=== PATIENT | male | born 2000 ===

== ENCOUNTER 2021-10-17 18:37 | Outpatient (CLI) | payer SELFPAY ==
[2021-10-18 02:08] LABS: GC DNA Amplified* NOT DETECTED (No Detected)
[2021-10-18 12:44] LABS: Chlamydia DNA Amplified* DETECTED (No Detected)
== END 2021-10-17 18:38 | disposition home or self-care (01) ==
LOC: LKVREF 18:37
PROVIDERS: Visit Provider Emergency Medicine
DX: R36.9 Urethral discharge, unspecified (principal)
CPT/HCPCS: 87491; 87591

== ENCOUNTER 2021-10-21 08:14 | Outpatient (CLI) | payer SELFPAY ==
[2021-10-21 12:53] LABS: Hepatitis B Surface Antigen* Negative (Negative)
[2021-10-21 13:02] LABS: HIV 1/2/P24 Combo Screen* Negative (Negative)
[2021-10-21 13:11] LABS: Hepatitis C Virus Antibody* Negative (Negative)
[2021-10-23 16:01] LABS: Rapid Plasma Reagin (RPR) Non Reactive (Non Reactive)
== END 2021-10-21 08:15 | disposition home or self-care (01) ==
PROVIDERS: Visit Provider Family Medicine
DX: A74.9 Chlamydial infection, unspecified (principal); Z11.3 Encounter for screening for infections with a predominantly sexual mode of transmission
CPT/HCPCS: 86592; 86703; 86803; 87340; 87529

== ENCOUNTER 2022-05-15 15:25 | Outpatient (CLI) | payer OTHER, SELFPAY ==
[2022-05-15 23:13] LABS: HIV 1/2/P24 Combo Screen* Negative (Negative)
[2022-05-16 00:21] LABS: Hepatitis C Virus Antibody* Negative (Negative)
[2022-05-16 00:29] LABS: Chlamydia DNA Amplified* NOT DETECTED (No Detected); GC DNA Amplified* NOT DETECTED (No Detected)
[2022-05-17 17:26] LABS: Rapid Plasma Reagin (RPR) Non Reactive (Non Reactive)
[2022-05-20 09:33] LABS: HSV 1 Subtype by PCR Not Detected; HSV 2 Subtype by PCR Not Detected; Herpes Simplex Subtype Source Serum
== END 2022-05-15 15:26 | disposition home or self-care (01) ==
PROVIDERS: Visit Provider Physician Assistant Medical
DX: Z11.3 Encounter for screening for infections with a predominantly sexual mode of transmission (principal)
CPT/HCPCS: 86592; 86703; 86803; 87252; 87491; 87529; 87591

== ENCOUNTER 2023-02-28 20:17 | Emergency (ER) | payer OTHER, SELFPAY ==
[2023-02-28] VITALS (8 sets, daily range): BP systolic 118–121; BP diastolic 62–78; PULSE 99–125; RESP 20–24; TEMP 37.5–38.7; O2SAT 97–98; BMI 22.0
[2023-02-28 21:12] LABS: PCR FLU A Negative PCR FLU A (Negative); PCR FLU B Negative PCR FLU B (Negative); PCR RSV Negative PCR RSV (Negative)
[2023-02-28 21:24] LABS: SARS PCR* Negative SARS-CoV-2 (Negative)
--- NOTE | 2023-02-28 21:48 | CRLHL7_ITS ---
For Patients: As a result of the Cures Act, medical imaging exams and procedure reports are released immediately into your electronic medical record. You may view this report before your referring provider. If you have questions, please contact your health care provider. Indication: Fever and cough Technique: Chest 2 views Comparison: None Findings/Impression: Normal cardiomediastinal silhouette. There is some ill-defined opacities in both lower lobes concerning for atelectasis or infection. No pneumothorax or effusion. No acute osseous abnormality. Dictated by Yolanda You MD @ 02/28/2023 10:35:33 PM (Electronically Signed)
--- NOTE | 2023-02-28 21:49 | ED_ITS ---
HPI - General Adult General Chief complaint: Fever Stated complaint: shortness of breath Time Seen by Provider: 02/28/23 21:23 History of Present Illness HPI narrative: This 22-year-old male comes in with his mother and reports rather sudden onset of fever, body aches, cough, sore throat that occurred earlier today. Prior to this he has been feeling normal. He arrives with tachycardia and temperature of 101.7?. Related Data Home Medications Medication Instructions Recorded Confirmed No Known Home Medications 05/15/22 10/03/22 Allergies Allergy/AdvReac Type Severity Reaction Status Date / Time No Known Allergies Allergy Verified 10/03/22 12:16 Review of Systems Status of ROS: Reports: 10 or more systems reviewed and unremarkable except as noted in History and below Narrative: Constitutional: No weight gain or loss. Fever and body aches. Eyes: No discharge. No vision changes. HENT: No congestion, no sore throat, no ear pain. Cardiovascular: No chest pain, no palpitations. Respiratory: No shortness of breath, no wheezes. He reports a cough. Gastrointestinal: No abdominal pain, no vomiting, no diarrhea. Genitourinary: No dysuria, no hematuria. Musculoskeletal: Normal range of motion. Skin: No rashes, no pruritis. Neurological: No dizziness, weakness, sensory change, speech change. Endo/Heme/Allergies: No bruising or bleeding. No polydipsia. Pysch: no suicidality, no anxiety, no insomnia. All other systems reviewed and are negative. [facility] Medical History (Updated 02/28/23 @ 22:56 by Claude Romo MD) Passive suicidal ideations ?R45.851 - Suicidal ideations (ICD-10) Severe anxiety ?F41.9 - Anxiety disorder, unspecified (ICD-10) Mood disorder ?F39 - Unspecified mood [affective] disorder (ICD-10) Bilateral patent pressure equalization tubes (05/29/08) ?Z96.22 - Myringotomy tube(s) status (ICD-10) Chlamydia ?A74.9 - Chlamydial infection, unspecified (ICD-10) Social History Smoking Status: Never smoker Second hand tobacco smoke exposure: No How often do you have a drink containing alcohol: never AUDIT-C Alcohol total score: 0 Non-prescribed substance use: denies use Little interest or pleasure in doing things: nearly every day Feeling down, depressed, or hopeless: nearly every day Exam Narrative: Exam Narrative: Constitutional: Well-developed, well-nourished, no acute distress. HEENT: Normocephalic, atraumatic. Neck: Normal range of motion. Nontender. Supple. Heart: Regular. No murmurs. Normal rate. Intact distal pulses. Lungs: Clear to auscultation. No chest discomfort. No wheezes, rhonchi, or rales. Abdomen: Normal bowel sounds. Nontender. No rebound tenderness. Genitalia: Deferred. Back: No midline tenderness. Normal range of motion. Extremities: Normal range of motion. No injury. Skin: Intact. No rash. Warm. No erythema or pallor. Neurologic: No altered sensation. No weakness. Alert and oriented. Psychiatric: No suicidality. No anxiety or depression. No insomnia. Nursing notes and vitals signs are reviewed. Const: Vital Signs, click to edit/add: Vital Signs - 24 hr 02/28/23 20:23 02/28/23 20:24 02/28/23 21:30 Temperature 101.3 F H 101.7 F H Pulse Rate [Pulse Oximeter] 125 H Pulse Rate [Right Pulse Oximeter] 113 H Respiratory Rate 20 24 Blood Pressure [Le ft Arm] 121/70 Blood Pressure [Ri ght Upper Arm] 118/62 Pulse Oximetry 98 97 98 Oxygen Delivery Me thod Room Air Room Air 02/28/23 21:52 02/28/23 22:00 Temperature 101.7 F H 101.3 F H Pulse Rate [Pulse Oximeter] 113 H Pulse Rate [Right Pulse Oximeter] Respiratory Rate 24 Blood Pressure [Le ft Arm] Blood Pressure [Ri ght Upper Arm] 121/70 Pulse Oximetry 97 Oxygen Delivery Me thod Room Air Course Vital Signs Vital signs: Initial Vital Signs Temperature 101.3 F H 02/28/23 20:23 Temperature Source Temporal Artery Scan 02/28/23 20:23 Pulse Rate 113 H 02/28/23 20:23 Respiratory Rate 20 02/28/23 20:23 Respiratory Effort Normal, Spontaneous, Non-Labored 02/28/23 20:23 Respiratory Depth Normal 02/28/23 20:23 Respiratory Pattern Normal 02/28/23 20:23 Blood Pressure 121/70 02/28/23 20:23 Blood Pressure Mean 87 02/28/23 20:23 Blood Pressure Position Supine 02/28/23 20:23 Pulse Oximetry 98 02/28/23 20:23 Oxygen Delivery Method Room Air 02/28/23 20:23 Sepsis Recent Fever Within 48 Hours Yes 02/28/23 20:23 Sepsis New/Unexplained Change in Mental Status No 02/28/23 20:23 Sepsis Action Taken by Nursing No Action Required 02/28/23 20:23 Vital Signs Temperature 101.3 F H 02/28/23 20:23 Pulse Rate 113 H 02/28/23 20:23 Respiratory Rate 20 02/28/23 20:23 Blood Pressure 121/70 02/28/23 20:23 Pulse Oximetry 98 02/28/23 20:23 Oxygen Delivery Method Room Air 02/28/23 20:23 Temperature 101.3 F H 02/28/23 22:00 Pulse Rate 113 H 02/28/23 22:00 Respiratory Rate 24 02/28/23 22:00 Blood Pressure 121/70 02/28/23 22:00 Pulse Oximetry 97 02/28/23 22:00 Oxygen Delivery Method Room Air 02/28/23 22:00 Medications Administered Medications: Generic Name Dose Route Start Last Admin Trade Name Freq PRN Reason Stop Dose Admin Sodium Chloride 1,000 mls @ 1,000 mls/hr 02/28/23 22:00 02/28/23 21:52 0.9 % Sodium Chloride 1000 Ml IV 02/28/23 22:59 1,000 mls/hr .Q1H ZENIA Administration Sodium Chloride 1,000 mls @ 1,000 mls/hr 02/28/23 22:00 02/28/23 21:53 0.9 % Sodium Chloride 1000 Ml IV 02/28/23 22:59 1,000 mls/hr .Q1H ZENIA Administration Discontinued Medications Generic Name Dose Route Start Last Admin Trade Name Freq PRN Reason Stop Dose Admin Acetaminophen 1,000 mg 02/28/23 21:47 02/28/23 21:52 Acetaminophen 500 Mg Tablet PO 02/28/23 21:48 1,000 mg ONCE ONE Administration Medical Decision Making MDM Narrative Medical decision making narrative: This patient comes in reporting rather sudden onset of fever, body aches, cough. An IV was established where he did receive a couple L of normal saline. He arrives with fever and had some ibuprofen prior to arrival. He also received Tylenol 1000 mg here. This helped him feel better. Lab results returned negative for COVID, influenza, RSV, and strep. His white count is elevated a bit at 13.7. His lactate returns in normal range. A chest x-ray is obtained and this does show some subtle finding at the bases that may indicate infiltrate. Seeing that all the viral testing was negative I did decide to treat him with an antibiotic. He received an [employer] prescription for doxycycline. Lab Data Labs: Lab Results 02/28/23 02/28/23 02/28/23 Range/Units 20:20 21:40 21:48 WBC 13.79 H (4.50-11.00) K/uL RBC 5.82 (4.30-5.90) m/uL Hgb 15.3 (13.5-17.5) gm/dL Hct 46.1 (37.0-53.0) % MCV 79 L (80-100) fL MCH 26 (26-34) pg MCHC 33 (32-36) gm/dL RDW Coeff of Nino 12.4 (11.5-15.5) % Plt Count 245 (140-440) K/uL Neut % (Auto) 90.5 H (42.0-72.0) % Lymph % (Auto) 6.7 L (20-44) % [place] % (Auto) 2.5 (0.0-11.0) % Eos % (Auto) 0.1 (0.0-7.0) % Baso % (Auto) 0.1 (0.0-3.0) % Neut # (Auto) 12.50 H (1.7-7.0) K/uL Lymph # (Auto) 0.90 (0.90-2.90) K/uL [place] # (Auto) 0.30 (0.00-0.90) K/UL Eos # (Auto) 0.00 (0.00-0.50) K/uL Baso # (Auto) 0.00 (0.00-0.30) K/uL Abs Immat Gran (auto) 0.00 (0.00-0.30) K/uL Imm/Tot Granulo (auto) 0.1 % Sodium 137 (135-149) mmol/L Potassium 3.6 (3.6-5.1) mmol/L Chloride 104 (96-114) mmol/L Carbon Dioxide 23 (20-32) mmol/L Anion Gap 10 (7-15) mEq/L BUN 19 (5-24) mg/dL Creatinine 1.0 (0.5-1.5) mg/dL Estimated Creat Clear 113.74 Estimated GFR 109 ml/min Glucose 114 (60-115) mg/dL Lactate 1.7 (0.5-1.9) mmol/L Calcium 9.5 (8.4-10.6) mg/dL SARS-CoV-2 (PCR) Negative SARS-CoV-2 (Negative) Influenza Type A (PCR) Negative PCR FLU A (Negative) Influenza Type B (PCR) Negative PCR FLU B (Negative) RSV (PCR) Negative PCR RSV (Negative) Group A Strep DNA NOT DETECTED (Not Detectd) Imaging Data Chest x-ray: Radiologist's impression: Normal cardiomediastinal silhouette. There is some ill-defined opacities in both lower lobes concerning for atelectasis or infection. No pneumothorax or effusion. No acute osseous abnormality. Discharge Plan Discharge Clinical Impression: Acute respiratory infection Patient Disposition: Home w/ Parent or Adult Condition: Unchanged Additional Instructions: Take medication as prescribed. Use [id number] medicines also as needed and directed. Follow up with MD return if worsening. Prescriptions: No Action No Known Home Medications Follow Up/Referrals: Provider,Not a Local [Primary Care Provider] - Stand Alone Forms: [employer] Info Instructions
[2023-02-28] MEDS: ACETAMINOPHEN 500 MG TABLET 1000 MG PO (21:52)
[2023-02-28] MEDS: 0.9 % SODIUM CHLORIDE 1000 ml 1,000 ML IV ×2 (21:52→21:53)
[2023-02-28 22:00] LABS: Hematocrit 46.1 % (37.0-53.0); Hemoglobin* 15.3 gm/dL (13.5-17.5); Mean Corpuscular HGB Conc 33 gm/dL (32-36); Mean Corpuscular Hemoglobin 26 pg (26-34); Mean Corpuscular Volume 79 fL (80-100); Neutrophils Percent Auto 90.5 % (42.0-72.0); Platelet Count* 245 K/uL (140-440); RDW Coefficient of Variation % 12.4 % (11.5-15.5); Red Blood Count 5.82 m/uL (4.30-5.90); White Blood Count* 13.79 K/uL (4.50-11.00)
[2023-02-28 22:01] LABS: Basophils Percent Auto 0.1 % (0.0-3.0); Eosinophils Percent Auto 0.1 % (0.0-7.0); Immature Granulocytes Pct Auto 0.1 %; Lymphocytes Percent Auto 6.7 % (20-44); Monocytes Percent Auto 2.5 % (0.0-11.0)
[2023-02-28 22:13] LABS: Slide Review Reflex No
[2023-02-28 22:16] LABS: Chloride* 104 mmol/L (96-114); Potassium* 3.6 mmol/L (3.6-5.1); Sodium* 137 mmol/L (135-149)
[2023-02-28 22:19] LABS: Anion Gap 10 mEq/L (7-15); Blood Urea Nitrogen* 19 mg/dL (5-24); Carbon Dioxide* 23 mmol/L (20-32); Est. Creatinine Clearance* 113.74; Estimated Glomerular Filt Rate 109 ml/min
[2023-02-28 22:20] LABS: Calcium* 9.5 mg/dL (8.4-10.6); Glucose* 114 mg/dL (60-115)
[2023-02-28 22:30] LABS: Lactate* 1.7 mmol/L (0.5-1.9)
[2023-02-28 22:44] LABS: Strep A DNA Probe* NOT DETECTED (Not Detectd)
== END 2023-02-28 23:09 | disposition home or self-care (01) ==
PROVIDERS: Emergency Provider Emergency Medicine Emergency Medical Services
DX: J06.9 Acute upper respiratory infection, unspecified (principal)
CPT/HCPCS: 36415; 71046; 80048; 83605; 85025; 87631; 87651; 94761; 99283; 99284; A9270; J7030

== ENCOUNTER 2024-10-20 18:22 | Emergency (ER) | payer OTHER, SELFPAY ==
--- OUTSIDE RECORDS SUMMARY | 2024-10-16 10:20 | XMS_ITS | Encounter Summary ---
Author Organization [facility] Address [address], [place] [address] Care Team Providers Care Economic Specialist Name Role Phone Needs Pcp, Assignment Primary Care Provider [phone]- [phone] Reason for Referral * Consult/Transfer Care (Routine) - New Request Specialty Diagnoses / Procedures Referred By Contac t Referred To Contact Diagnoses Major depressive disorder with current active episode, unspecified depression episode severity, unspecified whether recurrent (HRC) Brett Abdullahi MD [address] [place] [address] Phone: tel: fax: Referral ID Status Reason Start Date Expiration Date V isits Requested Visits Authorized [id number] New Request 10/16/2024 01/15/2026 1 1 Scheduling Instructions Your provider has recommended an appointment with [facility]. You can quickly make your appointment online at [email or web address]. You can also call [phone] for help scheduling your appointment. We suggest you call your health insurance company about your coverage and benefits for this appointment. Question Answer Appointment Urgency? Non-Urgent Reason for visit? to establish care and depression follow up-within 2-3 weeks Reason for Visit * Reason Comments ANXIETY Encounter Details Date Type Department Care Team (Late st Contact Info) Description 10/16/2024 10:20 AM CDT Office Visit [facility] [address] [place] [id number] Brett Abdullahi MD [address] [place] [address] Major depressive disorder with current active episode, unspecified depression episode severity, unspecified whether recurrent (HRC) Social History Tobacco Use Types Packs/Day Years Used Date Smoking Tobacco: Never Tobacco Cessation:Counseling Given: Not Answered Sex and Gender Information Value Date Recorded Sex Assigned at Not on file 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 Gender Identity Not on file Sexual Orientation Not on file documented as of this encounter Last Filed Vital Signs Vital Sign Reading Time Taken Comments Blood Pressure 135/80 10/16/2024 10:17 AM CDT Pulse 80 10/16/2024 10:17 AM CDT Temperature 36.8 C (98.3 F) 10/16/2024 10:17 AM CDT Respiratory Rate 16 10/16/2024 10:17 AM CDT Oxygen Saturation 100% 10/16/2024 10:17 AM CDT Inhaled Oxygen Concentration - - Weight - - Height - - Body Mass Index - - documented in this encounter Patient Instructions * Patient Instructions* Brett Abdullahi MD - 10/16/2024 10:20 AM CDT You are referred to establish care with a primary care provider. Take your medication as directed at night. documented in this encounter Progress Notes * Brett Abdullahi MD - 10/16/2024 10:20 AM CDT CHIEF COMPLAINT Chief Complaint Patient presents with ANXIETY HISTORY OF PRESENT ILLNESS 24 y.o. year old male presents to the Urgent Care today for evaluation of anxiety and depression. Claims that over the last couple of weeks he has been having worsening feeling of the himself. Further questioning reveals that he has been having depressive thought ever since he was in [employer] but everybody came on telling to get better on his own. He thinks that he may have seen a counselor 1 time but not sure of the results. Has never been started on any medication. 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 He denies having any suicide ideation even though he has a fleeting thoughts. The last major event that really put him down is hehas a relationship with a young girl who basically told him that he is not good for her and therefore the relationship is in jeopardy. Mom states that he hours have negative thoughts about everything he almost thought about what he can do any the thing differently if something did not not go well. He dealt on that. Reviewed Nursing Notes: Charlette Ovalle RN 10/16/24 1018 Signed Per pt has been feeling anxious for the past couple days. Hx of anxiety, but is not on any medications for this. 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 REVIEW OF SYSTEMS 10 review of systems were reviewed and normal except what were noted under HPI. PRIOR HISTORY Medications: No outpatient medications prior to visit. No facility-administered medications prior to visit. Reviewed via [employer] Chart Review/CareEverywhere: Allergies Past Medical HistoryThere is no problem list on file for this patient. Past Surgical History Social History Social History Tobacco Use Smoking status: Never Smokeless tobacco: Not on file Vaping Use Vaping status: Never Used Substance Use Topics Alcohol use: Not on file Drug use: Not on file PHYSICAL EXAM Vitals Reviewed: BP 135/80 (BP Location: Left Arm, BP Cuff Size: Regular - Long) Pulse 80 Temp 36.8 ??C (98.3 ??F) (Oral) Resp 16 SpO2 100% GENERAL: Healthy-appearing patient. Alert oriented x3. In no acute respiratory distress. He has a flat affect and started crying when discussed about all his dilemma. HEAD: Normocephalic atraumatic. EYE: Nonicteric sclera. Conjunctiva without injection. ENT: Neck supple. CV: Regular rate and rhythm without murmur. Distal pulses are equally palpable and appear to be normal. PULM: Normal auscultation of both lungs. No wheezing, crackles and rales appreciated. MSK: Both upper and lower extremities appear to be normal. SKIN: No rash or other lesions appreciated. NEURO: Alert and oriented x3. Able to communicate in full sentences. LABS - IMAGING - MEDICATIONS LABS/EKG: No results found for any visits on 10/16/24. IMAGING: No results found. INTERVENTIONS: MEDICAL DECISION MAKING Patient seen and assessed. Presented to Urgent Care for for symptoms consistent with major depression or possibly even dysthymia. After long discussion was done we will start him on sertraline to be taken at night daily and refer him to establish care with a primary care provider and from there a referral to counseling is recommended. Long discussion about what he can do to improve his outlook on life done in detail. If despite above and symptoms worsen, see your provider or come back for re- evaluation here or the ER. Patient was understanding of above assessment and plan and left the clinic in stable condition. ASSESSMENT & PLAN DIAGNOSIS: ICD-10-CM 1. Major depressive disorder with current active episode, unspecified depression episode severity, unspecified whether recurrent (HRC) F32.9 FAMILY MEDICINE CONSULT ADULT/PEDS (AMB) Orders Placed This Encounter Medications sertraline (ZOLOFT) 50 MG tablet Sig: Take 1 Tablet (50 mg) by mouth daily for 30 days. Dispense: 30 Tablet Refill: 0 DISPOSITION: Discharge Home Brett Abdullahi M.D. [facility] documented in this encounter Nursing Notes * Charlette Ovalle RN - 10/16/2024 10:20 AM CDT Per pt has been feeling anxious for the past couple days. Hx of anxiety, but is not on any medications for this. 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 documented in this encounter Plan of Treatment Scheduled Referrals Name Type Priority Associated Diagnoses Orde r Schedule FAMILY MEDICINE CONSULT ADULT/PEDS (AMB) Referral Routine Major depressive disorder with current active episode, unspecified depression episode severity, unspecified whether recurrent (HRC) Ordered: 10/16/2024 documented as of this encounter Visit Diagnoses Diagnosis Major depressive disorder with current active episode, unspecified depression episode severity, unspecified whether recurrent (HRC) documented in this encounter Care Teams Economic Specialist Relationship Specialty Start Date End Date Needs Pcp, Assignment [facility] [address] PCP - General 10/16/24 documented as of this encounter
--- OUTSIDE RECORDS SUMMARY | 2024-10-20 18:24 | XMS_ITS | Encounter Summary ---
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 Was started on sertraline and advised to get established with new PCP or go to ED if symptoms were to worsen. States that since being seenhas had more anxiety and panic attacks.Not able to sleep and is not eating. Does not want to talk to anyone outside of his Mom. No thoughts of suicide noted. Pt noted to have flat affect when talkingon the phone. Advised that pt should be seen in ED and recommended Jeanette Mosley which Mom andpt verbalizes understanding of info. Reviewed pertinent medical history (as relates to the call): Yes Reviewed pertinent medications (as relates to the call): Yes Reason for Disposition Panic attack symptoms (diagnosed in the past) that is not better with usual treatment, reassurance,or Care Advice Protocols used: Anxiety and Panic [id number] documented in this encounter Plan of Treatment Not on file documented as of this encounter Visit Diagnoses Not on filedocumented in this encounter Care Teams Airplane Woodworker Relationship Specialty Start Date End Date Needs Pcp, [place] [address] PCP - General 10/16/24 documented as of this encounter
--- OUTSIDE RECORDS SUMMARY | 2024-10-20 18:24 | XMS_ITS | Clinical Summary ---
Author Organization [facility] Address [address] [place] [address] Care Team Providers Care Security Installation Technician Name Role Phone Needs Pcp, Assignment Primary Care Provider [phone] Source Comments You are receiving this document as you are listed as the primary care provider,follow-up provider, or the patient has been referred to you for consultation.This is in compliance with the Medicare andMedicaid EHR Incentive Program,which states Providers who transition their patient to another setting of careor provider of care or refers their patient to another provider of care shouldprovide summary care record for each transition of care or referral. [facility] Allergies Active Allergy Reactions Criticality Noted Date Comments Penicillins Other, see comments 11/06/2002 Childhood reaction- unknown Medications sertraline (ZOLOFT) 50 MG tablet Take 1 Tablet (50 mg) by mouth daily for 30 days. 30 Tablet 10/16/2024 Active Active Problems No known active problems Encounters Date Type Department Care Team Description 10/20/2024 Nurse Triage None Needs Pcp, Assignment PANIC ATTACK 10/16/2024 10:20 AM CDT Office Visit [facility] [address] [place] [address] Brett Abdullahi MD Major depressive disorder with current active episode, unspecified depression episode severity, unspecified whether recurrent (HRC) from Last 3 Months Social History Tobacco Use Types Packs/Day Years Used Date Smoking Tobacco: Never Tobacco Cessation:Counseling Given: Not Answered Sex and Gender Information Value Date Recorded Sex Assigned at Not on file 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 Gender Identity Not on file Sexual Orientation Not on file Last Filed Vital Signs Vital Sign Reading Time Taken Comments Blood Pressure 135/80 10/16/2024 10:17 AM CDT Pulse 80 10/16/2024 10:17 AM CDT Temperature 36.8 C (98.3 F) 10/16/2024 10:17 AM CDT Respiratory Rate 16 10/16/2024 10:17 AM CDT Oxygen Saturation 100% 10/16/2024 10:17 AM CDT Inhaled Oxygen Concentration - - Weight - - Height - - Body Mass Index - - Plan of Treatment Health Maintenance Due Date Last Done Comments Hep C Screening (Preventive Services) 2000 HPV Vaccine (1 - Male 3-dose series) 09/13/2015 HIV Screening (Preventive Services) 2016 Adult Preventive Visit 2018 HepB Vaccine (1) 09/13/2019 DTaP/Tdap/Td Vaccine (7 - Tdap) 09/24/2022 09/24/2012, 10/18/2005, 01/23/2003, Additional history exists COVID-19 Vaccine (3 - season) 2023 05/04/2021, 04/13/2021 Influenza Vaccine (#1) 2024 Zoster/Shingles Vaccine (1 of 2) 2050 Hib Vaccine Completed 10/15/2001, 12/25, 2000 Pneumococcal Vaccine Aged Out 10/15/2001, 07/18/2001, 03/27/2001, Additional history exists No longer eligible based on patient's age to complete this topic IPV (Polio) Vaccine Completed 10/18/2005, 07/18/2001, 01/16/2001, Additional history exists HepA Vaccine Aged Out No longer eligi ble based on patient's age to complete this topic MCV4 Vaccine Aged Out No longer eligi ble based on patient's age to complete this topic Meningococcal B Vaccine Aged Out No l onger eligible based on patient's age to complete this topic Insurance [facility] [id number] Care Teams Security Installation Technician Relationship Specialty Start Date End Date Needs Pcp, Assignment [place], [place] [id number] PCP - General 10/16/24
--- OUTSIDE RECORDS SUMMARY | 2024-10-20 18:24 | XMS_ITS | Encounter Summary ---
Author Organization [facility] Address [address] [place] [id number] Care Team Providers Care Customer Services Manager Name Role Phone Osmin Shrestha MD Primary Care Provider No Ref-Primary, Physician Primary Care Provider Lien Arreola DPM, Podiatry /Foot and Ankle Surgery Unavailable Encounter Details Date Type Department Care Team (Late st Contact Info) Description 01/28/2003 [facility] [address] [place] [address] Osmin Shrestha MD [address] [facility] [address] [place] [address] ER (Primary Dx) Social History Tobacco Use Types Packs/Day Years Used Date Smoking Tobacco: Never Passive Smoke Exposure: Yes Smokeless Tobacco: Never Comments:father smokes outsi de Alcohol Use Standard Drinks/Week Comments No 0 (1 standard drink = 0.6 oz pur e alcohol) Sex and Gender Information Value Date Recorded Sex Assigned at Not on file 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 HISTORY OF PRESENT ILLNESS: The patient is a 2-y ear-old male who was seen earlier at his primary care provider for fever and diagnosed at that time w ith a virus. Mom says he has been quite fussy for the last couple of days and this afternoon at home was crying and started having a bowel movement. When she checked his diaper area she noted a very l arge stool at the anus. He was having trouble passing this, and she tried to pull this out. However , the piece of stool went back in and the child has been crying ever since. The child has not had an y vomiting. He has not had any cough. PAST MEDICAL HISTORY: PE tubes. MEDICATIONS: Motrin p.r.n. ALLERGIES: No known drug allergies. PHYSICAL EXAMINATION: VITALS: Pulse 156. Respiratory rate 32. Oxygen saturations 100% on room air. Temperature 101.8. Weight 14.5 kg. GENERAL: The child i s crying but consolable. He is very cooperative with the exam. ABDOMEN: Soft, nondistended. Bowel sounds are present and hyperactive. The child does not want me to push on his left lower quadrant. He pulls my hand away, but there is no rebound or guarding. GENITALIA: Testicles are descended bushra aterally. Penis is normal. RECTAL: A hard piece of stool is felt in the rectal vault. LUNGS: Kenzie r to auscultation with equal breath sounds bilaterally and good air movement. CARDIAC: Regular rate and rhythm. No murmur, gallop, or rub. Please note that prior to discharge the child's heart rate was significantly lower after he had passed multiple stool. MEDICAL DECISION MAKING/EMERGENCY DEPART MENT COURSE: The child was given a pediatric Fleet enema. He initially passed a 3-4 cm stool ball t hat was very hard. After this he also had a very full diaper with multiple small hard pellets of sto ol. After this the child was sent for x-ray of the abdomen. It appears that we have cleaned out mos t of his descending colon area. There is a normal gas pattern. There is no evidence for obstruction. This x-ray was read by me. I spoke with mom about the child's fever explaining to her that if the child continues to have fever she should take him to see his primary again. I explained that it is u nlikely that the constipation and fever are related. IMPRESSION: 1) Constipation. 2) Fever. DIS POSITION: Home. CONDITION: Stable. [id number] SHARI MCCAULEY MD T: 07/2002 18:58 MT: Document: [id number] [place], [place] Name: BRENDAN CLEMONS EMERGENCY ROOM ENCOUNTER Page 2 of 2 LCN: JESSIE DSC: 01/28/2003 [place], [place] Name: MR#: : Admit Date: BRENDAN DICKERSON -74 2000 01/28/2003 Doctor: SHARI MCCAULEY MD EMERGENCY ROOM ENCOUNTER Page 1 of 2 Padmaja ctronically filed by Haile Paris 02/02/2003 10:12 AM documented in this encounter Plan of Treatment Not on file documented as of this encounter Visit Diagnoses Diagnosis ER- Primary documented in this encounter Care Teams Customer Services Manager Relationship Specialty Start Date End Date Osmin Shrestha MD [address] [place] [id number] PCP - General 06/25/02 12/02/23 No Ref-Primary, Physician PCP - General 12/03/23 Lien Arreola, DPM, Podiatry/Foot and Ankle Surgery [address] [place] [address] Assigned Musculoskeletal Provider 01/16/24 documented as of this encounter
--- OUTSIDE RECORDS SUMMARY | 2024-10-20 18:24 | XMS_ITS | Clinical Summary ---
Author Organization [facility] Address [address] [place] [address] Care Team Providers Care Try Out Person Name Role Phone Pcp, No Primary Care Provider Unavailabl e Allergies Active Allergy Reactions Criticality Noted Date Comments Penicillins *Unknown - Childhood Rxn 08/13/2021 Childhood reaction- unknown Medications No known medications Active Problems No known active problems Social History Tobacco Use Types Packs/Day Years Used Date Smoking Tobacco: Never Smokeless Tobacco: Never Alcohol Use Standard Drinks/Week Comments Never 0 (1 standard drink = 0.6 oz pur e alcohol) Sex and Gender Information Value Date Recorded Sex Assigned at Not on file 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 Gender Identity Not on file Sexual Orientation Not on file Obstetrics History Last Filed Vital Signs Vital Sign Reading Time Taken Comments Blood Pressure 124/76 09/06/2021 12:58 PM CDT Pulse 83 09/06/2021 12:58 PM CDT Temperature 36.4 C (97.6 F) 09/06/2021 12:58 PM CDT Respiratory Rate 16 09/06/2021 12:58 PM CDT Oxygen Saturation 97% 09/06/2021 12:58 PM CDT Inhaled Oxygen Concentration - - Weight 64.9 kg (143 lb) 09/06/2021 12:58 PM CDT Height 175.3 cm (5' 9) 08/13/2021 11:48 AM CDT Body Mass Index - - Plan of Treatment Health Maintenance Due Date Last Done Comments Tetanus booster 09/13/2011 Depression screening for age 12+ 2012 HIV for age 15-65 09/13/2015 HPV series for age 9-26 (1 - Male 3-dose series) 09/13/2015 Hepatitis C screening for ag e 18-79 2018 Hepatitis B series for 19+ ( 1 of 3 - 19+ 3-dose series) 09/13/2019 BMI (ht and wt on same day) for age 18+ 08/13/2022 08/13/2021 COVID-19 vaccine series ( - 2023- season) 2023 05/04/2021, 04/13/2021 Influenza Vaccine (#1) 2024 Pneumococcal series for age 6-49 Aged Out No longer eligible b ased on patient's age to complete this topic Care Teams Try Out Person Relationship Specialty Start Date End Date Pcp, No . PCP - General 08/13/21
--- OUTSIDE RECORDS SUMMARY | 2024-10-20 18:24 | XMS_ITS | Clinical Summary ---
Author Organization [facility] Address [address] [place] [id number] Care Team Providers Care Assistant Plant Manager Name Role Phone No Ref-Primary, Physician Primary Care Provider Lien ArreolaM, Podiatry /Foot and Ankle Surgery Unavailable Allergies Active Allergy Reactions Criticality Noted Date Comments Penicillins 11/06/2002 Medications No known medications Active Problems No known active problems Immunizations Immunization Administration Dates Next Due Comvax (HIB/HepB) 10/15/2001,01/16/2001,11/21/19 DTAP (<7y) 10/18/2005, 3,03/27/2001,01/16/2001, MMR (MMRII) 10/18/2005,01/23/2003 Pneumococcal (PCV 7) 10/15/2001,07/18/2001,03/27,2000 Poliovirus, inactivated (IPV) 10/18/2005, 002,01/16/2001,2000 TDAP Vaccine (Boostrix) 09/24/2012 Varicella (Varivax) 05/29/2008,10/15/2001 Family History Medical History Relation Comments Hypertension Father Neurologic Disorder Maternal Grandfather migrain e Neurologic Disorder Maternal Grandmother migrain e Neurologic Disorder Mother migraines Relation Status Comments Father Alive Maternal Grandfather Alive Maternal Grandmother Alive Mother Alive Paternal Grandfather Alive Paternal Grandmother Alive Social History Tobacco Use Types Packs/Day Years Used Date Smoking Tobacco: Never Passive Smoke Exposure: Yes Smokeless Tobacco: Never Tobacco Cessation:Counseling Given: Not Answered Comments:father smokes outside Alcohol Use Standard Drinks/Week Comments No 0 (1 standard drink = 0.6 oz pur e alcohol) PHQ-2 Answer Date Recorded PHQ-2 Score 0 12/20/2023 Sex and Gender Information Value Date Recorded Sex Assigned at Not on file 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 Gender Identity Not on file Sexual Orientation Not on file Last Filed Vital Signs Vital Sign Reading Time Taken Comments Blood Pressure 118/78 12/20/2023 8:39 AM CDT Pulse 67 12/03/2023 10:14 AM CDT Temperature 36.6 C (97.9 F) 12/03/2023 8:49 AM CDT Respiratory Rate 18 12/03/2023 10:14 AM CDT Oxygen Saturation 98% 12/03/2023 10:14 AM CDT Inhaled Oxygen Concentration - - Weight 70.8 kg (156 lb) 12/20/2023 8:39 AM CDT Height 177.8 cm (5' 10) 12/03/2023 8:49 AM CDT Body Mass Index 22.38 12/03/2023 8:49 AM CDT Plan of Treatment Health Maintenance Due Date Last Done Comments ADVANCE CARE PLANNING 2000 ANNUAL REVIEW OF HM ORDERS 2000 YEARLY PREVENTIVE VISIT 09/13/2003 01/23/2003, 07/16 HIV SCREENING 09/13/2015 HPV VACCINE (1 - Male 3-dose series) 09/13/2015 HEPATITIS C SCREENING 2018 DTAP/TDAP/TD VACCINE (7 - Td or Tdap) 09/24/2022 09/24/2012, 10/18/2005, 01/23/2003, Additional history exists COVID-19 VACCINE ( season) 2023 05/04/2021, 04/13/2021 PHQ-2 (once per calendar year) 2024 12/20/2023 INFLUENZA VACCINE (#1) 2024 ZOSTER VACCINE (1 of 2) 2050 HEPATITIS B VACCINE Completed 10/15/2001, 01/16/2001, 2000 PNEUMOCOCCAL VACCINE: PEDIATRICS (0 to 5 YEARS) AND AT-RISK PATIENTS (6 to 49 YEARS) Aged Out 10/15/2001, 07/18/2001, 03/27/2001, Additional history exists No longer eligible based on patient's age to complete this topic MENINGITIS B VACCINE Aged Out No long er eligible based on patient's age to complete this topic MENINGITIS VACCINE Aged Out No longer eligible based on patient's age to complete this topic Insurance MEDICA CHOICE Member Subscriber Plan / Payer (Ef fective 2012-Present) Name:Brendan Lauren Relation to Subscriber:Child Name:PARRIS LAUREN Date of :1977 (Home) Address: [address] [address] Payer ID:[id number] (NAIC) Type:Indemnity Address: [address] MEDICA CHOICE [employer]CIAL MED[employer] CHOICE MED[employer] CHOICE [facility] [employer] [facility] CLAIMS MANAGEMENT Care Teams Assistant Plant Manager Relationship Specialty Start Date End Date No Ref-Primary, Physician PCP - General 12/03/23 Lien Arreola DPM, Podiatry/Foot and Ankle Surgery [address] [place] [address] Assigned Musculoskeletal Provider 01/16/24
[2024-10-20 18:38] VITALS: BP 138/87; PULSE 57; RESP 18; TEMP 36.4; O2SAT 100; BMI 20.1
[2024-10-20 21:29] VITALS: BP 115/78; PULSE 62; RESP 21; TEMP 36.8; O2SAT 99
--- NOTE | 2024-10-20 21:29 | ED_ITS ---
HPI - General Adult General Date Seen: 10/20/24 Chief complaint: Unspecified Complaint, Adult Stated complaint: Not slept in 4 days, anxiety Time Seen by Provider: 10/20/24 21:29 History of Present Illness HPI narrative: 24-year-old male presenting to the ER today with his mother with concern for insomnia. He was sent here by his clinic. The rib per came to the ER because he has not been able to sleep in 4 days. He has multiple stressors including recent surgery about 12 days ago on 10/08 and activity restrictions (cannot go to the gym as he normally would), and the end of a relationship with. It sounds like he has a long history of being hyper quit occult to himself. Does not carry a formal diagnosis of anxiety or depression. He is here with his mother she provides a lot of history for him. She feels like that the past couple of weeks have been very stressful since he has been on restricted duty after his varicocele surgery. Also he was in a relationship with a young woman but apparently she did not reciprocated his feelings and that relationship came to an and couple of weeks ago. Mother notes that he has been struggling with his anxiety for the past several days. He has never had panic attacks before but he has had a few panic attacks at home for the past couple of days. He has also been unable to get his thoughts to stop racing and not able to sleep more than short period of the time for the past 4 nights. The patient called his parents last night about midnight and went to stay with them because he just did not feel safe being alone. He is not have any thoughts of self-harm or hallucinations but more just that he can not sleep. He was in an urgent care at [facility] in [place] last week and was given a prescription for sertraline. He took 1 dose of it but did not like how it made him feel so stop taking it. He and his family do not think he has depression. They think he just has situational anxiety. He was unable to sleep. They have been trying to get him set up with a outpatient therapist and counselor through his employer and through [facility] but so far been unsuccessful. They were told to come here to the ER because he is not able to sleep. Related Data Home Medications ?Medication ?Instructions ?Recorded ?Confirmed No Known Home Medications 07/30/2409/24 Allergies Allergy/AdvReac Type Severity Reaction Status Date / Time No Known Allergies Allergy Verified 10/20/24 18:36 [facility] Medical History STI (sexually transmitted infection) ?A64 - Unspecified sexually transmitted disease (ICD-10) Mood disorder ?F39 - Unspecified mood [affective] disorder (ICD-10) Passive suicidal ideations ?R45.851 - Suicidal ideations (ICD-10) Closed head injury ?S09.90XA - Unspecified injury of head, initial encounter (ICD-10) Skin lesion (~04/2022) ?L98.9 - Disorder of the skin and subcutaneous tissue, unspecified (ICD-10) Surgical History H/O wisdom tooth extraction ?K08.409 - Partial loss of teeth, unspecified cause, unspecified class (ICD- 10) History of tympanostomy tube placement ?Z96.22 - Myringotomy tube(s) status (ICD-10) Social History Smoking Status: Never smoker Second hand tobacco smoke exposure: No How often do you have a drink containing alcohol: never AUDIT-C Alcohol total score: 0 Non-prescribed substance use: denies use Exam Narrative: Exam Narrative: Constitutional: Appears well-developed and well-nourished. Alert. Conversant. Non toxic. HENT: Head: Atraumatic. Nose: Nose normal. Mouth/Throat: Oral mucosa is clear and moist. no trismus. Eyes: Conjunctivae normal. EOM normal. Pupils equal, round, and reactive to light. No scleral icterus. Neck: Normal range of motion. Neck supple. No tracheal deviation present. Cardiovascular: Normal rate, Pulmonary/Chest: Effort normal. No stridor. No respiratory distress. Musculoskeletal: RUE: Normal range of motion. No tenderness. No deformity LUE: Normal range of motion. No tenderness. No deformity RLE: Normal range of motion. No edema. No tenderness. No deformity LLE: Normal range of motion. No edema. No tenderness. No deformity Neurological: Alert and oriented to person, place, and time. Normal strength. CN II-VII intact. No sensory deficit. GCS eye subscore is 4. GCS verbal subscore is 5. GCS motor subscore is 6. Normal coordination Skin: Skin is warm and dry. No rash noted. No pallor. Normal capillary refill. Psychiatric: Sitting up in his bed. He is looking side was off the bed and has very poor eye contact. He indicates that he wants his mother to provide history for him. She does provide a fairly detailed history, see HPI. When his mother steps out I am able to engage in more conversation. He does do have a little bit better eye contact. He denies any thoughts of self-harm. No auditory or visual hallucinations. He just says he can not sleep and cannot see his mind from racing. No drugs or alcohol. He and his family have been calling around to try to get an appointment with therapist but were told to come here to the ER. He would be interested in seeing a therapist. He is not sure if he would want to be on any long-term medications. Const: Vital Signs, click to edit/add: Vital Signs - 24 hr 10/20/24 18:38 10/20/24 21:29 Temperature 97.6 F 98.3 F Pulse Rate [Pulse Oximeter] 57 L 62 Respiratory Rate 18 21 Blood Pressure [Ri ght Upper Arm] 138/87 115/78 Pulse Oximetry 100 99 Oxygen Delivery Me thod Room Air Room Air Course Vital Signs Vital signs: Initial Vital Signs Temperature 97.6 F 10/20/24 18:38 Temperature Source Temporal Artery Scan 10/20/24 18:38 Pulse Rate 57 L 10/20/24 18:38 Pulse Rhythm Regular 10/20/24 18:38 Respiratory Rate 18 10/20/24 18:38 Blood Pressure 138/87 10/20/24 18:38 Blood Pressure Mean 104 10/20/24 18:38 Blood Pressure Position Sitting 10/20/24 18:38 Pulse Oximetry 100 10/20/24 18:38 Oxygen Delivery Method Room Air 10/20/24 18:38 Vital Signs Temperature 97.6 F 10/20/24 18:38 Pulse Rate 57 L 10/20/24 18:38 Respiratory Rate 18 10/20/24 18:38 Blood Pressure 138/87 10/20/24 18:38 Pulse Oximetry 100 10/20/24 18:38 Oxygen Delivery Method Room Air 10/20/24 18:38 Temperature 98.3 F 10/20/24 21:29 Pulse Rate 62 10/20/24 21:29 Respiratory Rate 21 10/20/24 21:29 Blood Pressure 115/78 10/20/24 21:29 Pulse Oximetry 99 10/20/24 21:29 Oxygen Delivery Method Room Air 10/20/24 21:29 Medical Decision Making MDM Narrative Medical decision making narrative: 24-year-old male accompanied to the ER tonight by his mother with concern for acute anxiety and insomnia with several panic attacks at home over the past few days. It sounds like a lot of his anxiety is probably situational, related to several concurrent psychosocial problems. These include recent and of relationship, recent surgery and resulting physical activity restrictions that limited his ability to exercise at the gym and do his job. He has been having insomnia and panic attacks for the past 4 days at home. Their primary goal of coming to the ER tonight was to get meds to help him sleep for tonight or for a couple of days. The patient is not really interested in starting on any long- term antidepressant or antianxiety therapy. At this point he is cooperative and alert. He is denying any thoughts of self-harm or suicide. At this point he does not represent acute threat to himself or others. He is certainly not holdable. He is not interested in inpatient mental health treatment at this point I think he is safe to try to treat in the outpatient setting. I did agree to give a short prescription for Ativan that they can use if needed for sleep or for anxiety. Discussed the potential addictive side effects of benzodiazepines. Patient and his mother verbalized understanding. They will work with his PCP and continue to work set up outpatient therapy. They are invited to return to the ER immediately if they have any concerns. Discharge Plan Discharge Clinical Impression: Anxiety, Insomnia Patient Disposition: Home, Self-Care Condition: Stable Instructions: Insomnia (ED), Anxiety (ED) Additional Instructions: As we discussed, use Ativan if needed to help with panic attacks or insomnia. Be careful because Ativan can cause dizziness, drowsiness, and can be addictive. Do not drive for 6 hours after taking Ativan. Please follow-up with your regular doctor at [facility] within the next few days for a checkup and if needed your regular doctor can give you a prescriptions for anxiety. Also please continue to work with the counselors and therapists to help manage your long-term mental health. As we discussed, please come back to the ER right away if you have worsening anxiety, thoughts of self-harm, or if you have any other concerns. Prescriptions: No Action No Known Home Medications Follow Up/Referrals: Bruce Hays MD [Primary Care Provider, [facility]] Stand Alone Forms: Supramed Info Instructions
== END 2024-10-20 22:22 | disposition home or self-care (01) ==
PROVIDERS: Emergency Provider Emergency Medicine; PCP Family Medicine
DX: G47.00 Insomnia, unspecified (principal); F41.9 Anxiety disorder, unspecified
CPT/HCPCS: 99283; 99284

== ENCOUNTER 2024-10-30 08:28 | Outpatient (CLI) | payer OTHER, SELFPAY ==
[2024-10-30 15:57] LABS: Chlamydia DNA Amplified* NOT DETECTED (No Detected); GC DNA Amplified* NOT DETECTED (No Detected)
== END 2024-10-30 08:29 | disposition home or self-care (01) ==
PROVIDERS: PCP Family Medicine; Visit Provider Family Medicine
DX: Z11.3 Encounter for screening for infections with a predominantly sexual mode of transmission (principal); Z11.59 Encounter for screening for other viral diseases; Z11.4 Encounter for screening for human immunodeficiency virus [HIV]
CPT/HCPCS: 86592; 86694; 86695; 86696; 86703; 87491; 87591